=== PATIENT | male | born 1990 | race Caucasian/White ===

== ENCOUNTER 2024-05-03 16:18 | Emergency (ER) | payer OTHER ==
[~2024-05-03] VITALS: Ht 175.3 cm; Wt 67.0 kg
[~2024-05-03 16:18] MED LIST: KEFLEX250 MG PO
[2024-05-03] MEDS ORDERED: METHOCARBAMOL750 MG PO (17:45)
[2024-05-03 17:57] VITALS: BP 148/100
== END 2024-05-03 17:57 | disposition home or self-care (01) ==
LOC: ED 16:18
DX: S16.1XXA Strain of muscle, fascia and tendon at neck level, initial encounter (principal); X58.XXXA Exposure to other specified factors, initial encounter; F17.200 Nicotine dependence, unspecified, uncomplicated
CPT/HCPCS: 72125